=== PATIENT | female | born 1995 | race American Indian/Alaskan Native ===

== ENCOUNTER 2016-04-09 20:28 | Emergency (ER) | payer MEDICAID ==
--- NOTE | 2016-04-10 02:00 | Emergency Department Report ---
HPI - General Chief Complaint: Upper Respiratory Infection Time Seen by Provider: 04/10/16 00:59 - HPI HPI: Patient here reports that she has productive cough that is yellow brown 3 days. She reports having some chills. She reports that a week ago started with nasal congestion and runny nose. Denies any nausea or vomiting. Patient is breast-feeding. Denies any sore throat or earache. Denies any shortness of breath or chest pain. ED Past Medical Hx - Past Medical History Previous Medical History?: No Hx Hypertension: No Hx Congestive Heart Failure: No Hx Diabetes: No Hx Deep Vein Thrombosis: No Hx Renal Disease: No Hx Sickle Cell Disease: No Hx Seizures: No Hx Asthma: No Hx COPD: No Hx HIV: No - Surgical History Past Surgical History?: No - Family History Family history: no significant - Social History Smoking Status: Current Every Day Smoker Substance Use Type: Alcohol - Medications Home Medications: Home Medications Medication Instructions Recorded Confirmed Last Taken Type HYDROcodone/APAP 5-325 [[place] 1 each PO Q6HR PRN #30 tablet 02/22/16 Unknown Rx 5/325] Ibuprofen [Motrin] 800 mg PO Q8HR PRN #60 tablet 02/22/16 Unknown Rx ALBUTEROL Inhaler [ProAir HFA 2 puff IH QID PRN #1 inhalation 04/10/16 Unknown Rx Inhaler] Acetaminophen [Tylenol] 325 mg PO Q8HR PRN #20 tablet 04/10/16 Unknown Rx Amoxicillin/K Clav Tab [Augmentin 1 tab PO Q12HR #20 tab 04/10/16 Unknown Rx 875 mg] guaiFENesin [Mucinex] 600 mg PO Q12H #10 tab.er.12h 04/10/16 Unknown Rx ED Review of Systems ROS: Stated complaint: CHILLS, COLD SYMPTOMS Other details as noted in HPI Comment: All other systems reviewed and negative Constitutional: chills, fever Eyes: denies: eye discharge ENT: congestion. denies: ear pain, throat pain Respiratory: cough. denies: shortness of breath, SOB with exertion, SOB at rest , stridor Cardiovascular: denies: chest pain, palpitations, edema, syncope Gastrointestinal: denies: abdominal pain, nausea, vomiting, diarrhea, constipation Skin: denies: rash Neurological: denies: headache, weakness Physical Exam - Physical Exam Vital Signs: Vital Signs 04/09/16 21:54 Temperature 100.3 F H Pulse Rate 110 H Respiratory 20 Rate Blood Pressure 138/94 O2 Sat by Pulse 100 Oximetry General: This is a 20-year-old female well-nourished well-developed in no acute distress. Physical Exam: Head: Normocephalic, atraumatic Mouth: Moist, no pharyngeal erythema or exudate. No peritonsillar abscesses. Uvula is midline and oral airways patent Ears:LAN TM congested without erythema. Lan EAC without any redness on the drainage. Nose: Negative frontal and maxillary sinus tenderness. Bilateral nasal mucosa congested with erythema and clear drainage. Neck: Full range of motion, no cervical adenopathy. no cspine tendeness. Eyes: Bilateral pupils equal and reactive to light. Bilateral sclera and conjunctiva without injection. Bilateral EOM intact. Lungs: Scattered wheezing auscultated to lung urena. No rhonchi wheezes or rales. Normal work of breathing. Patient with congested cough CV: S1, S2. Mild tachycardia 110. Regular rhythm. Extremity: No clubbing, cyanosis or edema. +2 pedal pulses, no deformity. Skin: Clean, dry and intact. No rashes or lesions. Psych: Normal mood and behavior. ED Course Vital Signs 04/09/16 21:54 Temperature 100.3 F H Pulse Rate 110 H Respiratory 20 Rate Blood Pressure 138/94 O2 Sat by Pulse 100 Oximetry Vital Signs 04/09/16 04/10/16 21:54 01:58 Temperature 100.3 F H Pulse Rate 110 H 82 Respiratory 20 18 Rate Blood Pressure 138/94 Blood Pressure 112/71 [Right] O2 Sat by Pulse 100 100 Oximetry - Reevaluation(s) Reevaluation #1: 04/10/16 02:32 Patient given Xopenex 1.25 mg nebulizer and Tylenol 650 mg in the emergency room. Patient vital signs better upon reassessment. Reevaluation #2: 04/10/16 02:44 Upon reevaluation, lungs souns clear ED Medical Decision Making - Medical Decision Making ED course: Patient here reports nasal congestion, coughing, fever and chills. She is found to have sinusitis and bronchitis. Patient given Xopenex 1.25 mg emergency room nebulizer. She was also given Tylenol 650 mg by mouth. She is currently breast-feeding and will be discharged home on amoxicillin, Mucinex and albuterol. I discussed the patient that she will need to follow up with her primary care physician and if she doesn't have one she can follow-up with outside [facility] Center. Critical care attestation.: If time is entered above; I have spent that time in minutes in the direct care of this critically ill patient, excluding procedure time. ED Disposition Clinical Impression: Cough Acute sinusitis Qualifiers: Sinusitis location: unspecified location Recurrence: not specified as recurrent Qualified Code(s): J01.90 - Acute sinusitis, unspecified Acute bronchitis Qualifiers: Bronchitis organism: unspecified organism Qualified Code(s): J20.9 - Acute bronchitis, unspecified Disposition: DISCHARGED TO HOME OR SELFCARE Is pt being admited?: No Does the pt Need Aspirin: No Condition: Stable Instructions: Acute Bronchitis (ED), Sinusitis (ED), Acute Cough (ED) Additional Instructions: Please increase her fluid intake Please take antibiotic as prescribed Please/sinuses out with saline nasal spray These follow-up with your primary care physician in 2 days. Prescriptions: Acetaminophen [Tylenol] 325 mg PO Q8HR PRN #20 tablet PRN Reason: Fever Amoxicillin/K Clav Tab [Augmentin 875 mg] 1 tab PO Q12HR #20 tab guaiFENesin [Mucinex] 600 mg PO Q12H #10 tab.er.12h ALBUTEROL Inhaler [ProAir HFA Inhaler] 2 puff IH QID PRN #1 inhalation PRN Reason: Cough and wheezing Referrals: PRIMARY CAREMD [Primary Care Provider] - 04/12/16 Forms: Work/School Release Form(ED)
[2016-04-10] MEDS ORDERED: TYLENOL PO ONE (02:02)
[2016-04-10] MEDS ORDERED: XOPENEX IH ONE (02:03)
[2016-04-10 02:31] VITALS: BP 112/71
== END 2016-04-10 02:50 | disposition home or self-care (01) ==
LOC: ED 20:28
DX: J01.90 Acute sinusitis, unspecified (principal); J20.9 Acute bronchitis, unspecified; F17.200 Nicotine dependence, unspecified, uncomplicated
CPT/HCPCS: 94640; 99282

== ENCOUNTER 2016-07-03 23:44 | Emergency (ER) | payer BC, MEDICAID ==
--- NOTE | 2016-07-04 03:37 | Emergency Department Report ---
- General Chief Complaint: Upper Respiratory Infection Stated Complaint: CHEST PAIN/FLU SX Time Seen by Provider: 07/04/16 03:25 Source: patient Mode of arrival: Ambulatory Limitations: No Limitations - History of Present Illness Initial Comments: This is a 20-year-old female that presents with cough, sore throat, headache, ringing in her right ear and chest pain while coughing for the past 2 days. Patient has been in close contact with her child which is diagnosed with common cold. Patient denies any shortness of breath, fever, chills, nausea or vomiting. Patient denies thunderclap headache. Patient stated the headache is gradual onset due to her cold. Patient denies abdominal pain. Denies urinary urgency or frequency. Patient denies any recent travels. MD Complaint: sore throat -: Gradual, days(s) (2) Severity: moderate Severity scale (0 -10): 8 Quality: aching Consistency: constant Context: sick contacts (child) Associated Symptoms: sore throat, cough, chest pain (with only cough), ear pain (right). denies: fever, chills, myalgias, diaphoresis, headache, rhinorrhea, nasal congestion, stiff neck, shortness of breath, abdominal pain, nausea, vomiting, diarrhea, dysuria, rash, confusion, right sweats, weight loss, epistaxis, hoarseness Treatments Prior to Arrival: none - Related Data Previous Rx's Medication Instructions Recorded Last Taken Type HYDROcodone/APAP 5-325 [[place] 1 each PO Q6HR PRN #30 tablet 02/22/16 Unknown Rx 5/325] Ibuprofen [Motrin] 800 mg PO Q8HR PRN #60 tablet 02/22/16 Unknown Rx ALBUTEROL Inhaler [ProAir HFA 2 puff IH QID PRN #1 inhalation 04/10/16 Unknown Rx Inhaler] Acetaminophen [Tylenol] 325 mg PO Q8HR PRN #20 tablet 04/10/16 Unknown Rx Amoxicillin/K Clav Tab [Augmentin 1 tab PO Q12HR #20 tab 04/10/16 Unknown Rx 875 mg] guaiFENesin [Mucinex] 600 mg PO Q12H #10 tab.er.12h 04/10/16 Unknown Rx Azithromycin [Zithromax Z-ROGER] 250 mg PO DAILY #1 tablet 07/04/16 Unknown Rx Ibuprofen [Motrin 600 MG tab] 600 mg PO Q8H PRN 5 Days 07/04/16 Unknown Rx Allergies Allergy/AdvReac Type Severity Reaction Status Date / Time No Known Allergies Allergy Unverified 12/20/15 21:49 ED Review of Systems ROS: Stated complaint: CHEST PAIN/FLU SX Other details as noted in HPI Constitutional: denies: chills, fever Eyes: denies: eye pain, eye discharge, vision change ENT: ear pain, throat pain. denies: dental pain, hearing loss, epistaxis, congestion Respiratory: denies: cough, shortness of breath, SOB with exertion, SOB at rest , stridor, wheezing Cardiovascular: denies: chest pain, palpitations Endocrine: no symptoms reported Gastrointestinal: denies: abdominal pain, nausea, diarrhea Genitourinary: denies: urgency, dysuria, discharge Musculoskeletal: denies: back pain, joint swelling, arthralgia Skin: denies: rash, lesions Neurological: denies: headache, weakness, paresthesias Psychiatric: denies: anxiety, depression Hematological/Lymphatic: denies: easy bleeding, easy bruising ED Past Medical Hx - Past Medical History Previous Medical History?: No Hx Hypertension: No Hx Congestive Heart Failure: No Hx Diabetes: No Hx Deep Vein Thrombosis: No Hx Renal Disease: No Hx Sickle Cell Disease: No Hx Seizures: No Hx Asthma: No Hx COPD: No Hx HIV: No - Surgical History Past Surgical History?: No - Social History Smoking Status: Current Every Day Smoker Substance Use Type: None - Medications Home Medications: Home Medications Medication Instructions Recorded Confirmed Last Taken Type HYDROcodone/APAP 5-325 [[place] 1 each PO Q6HR PRN #30 tablet 02/22/16 Unknown Rx 5/325] Ibuprofen [Motrin] 800 mg PO Q8HR PRN #60 tablet 02/22/16 Unknown Rx ALBUTEROL Inhaler [ProAir HFA 2 puff IH QID PRN #1 inhalation 04/10/16 Unknown Rx Inhaler] Acetaminophen [Tylenol] 325 mg PO Q8HR PRN #20 tablet 04/10/16 Unknown Rx Amoxicillin/K Clav Tab [Augmentin 1 tab PO Q12HR #20 tab 04/10/16 Unknown Rx 875 mg] guaiFENesin [Mucinex] 600 mg PO Q12H #10 tab.er.12h 04/10/16 Unknown Rx Azithromycin [Zithromax Z-ROGER] 250 mg PO DAILY #1 tablet 07/04/16 Unknown Rx Ibuprofen [Motrin 600 MG tab] 600 mg PO Q8H PRN 5 Days 07/04/16 Unknown Rx ED Physical Exam - General Limitations: No Limitations General appearance: alert, in no apparent distress - Head Head exam: Present: atraumatic, normocephalic - Eye Eye exam: Present: normal appearance, PERRL, EOMI Pupils: Present: normal accommodation - ENT ENT exam: Present: normal exam, normal orophraynx, mucous membranes moist, TM's normal bilaterally - Expanded ENT Exam Expanded Mouth exam: Present: normal external inspection, tongue normal. Absent: drooling, trismus, muffled voice, tongue elevation, laceration Teeth exam: Present: normal inspection Throat exam: Positive: tonsillar erythema. Negative: tonsillomegaly, tonsillar exudate, R peritonsillar mass, L peritonsillar mass - Neck Neck exam: Present: normal inspection, full ROM. Absent: tenderness, lymphadenopathy - Respiratory Respiratory exam: Present: normal lung sounds bilaterally. Absent: respiratory distress, wheezes, rales, rhonchi, stridor, chest wall tenderness, accessory muscle use, decreased breath sounds, prolonged expiratory - Cardiovascular Cardiovascular Exam: Present: regular rate, normal rhythm. Absent: systolic murmur, diastolic murmur, rubs, gallop - GI/Abdominal GI/Abdominal exam: Present: soft, normal bowel sounds. Absent: distended, tenderness, guarding, rebound, rigid - Extremities Exam Extremities exam: Present: normal inspection, full ROM, normal capillary refill. Absent: tenderness, pedal edema, joint swelling, calf tenderness - Back Exam Back exam: Present: normal inspection, full ROM. Absent: tenderness, CVA tenderness (R), CVA tenderness (L) - Neurological Exam Neurological exam: Present: alert, oriented X3, CN II-XII intact, normal gait - Psychiatric Psychiatric exam: Present: normal affect, normal mood - Skin Skin exam: Present: warm, dry, intact, normal color. Absent: rash ED Course Vital Signs 07/04/16 07/04/16 00:38 04:06 Temperature 98.2 F 98.3 F Pulse Rate 97 H 74 Respiratory 18 20 Rate Blood Pressure 122/83 Blood Pressure 122/80 [Left] O2 Sat by Pulse 100 99 Oximetry Vital Signs 07/04/16 07/04/16 00:38 04:06 Temperature 98.2 F 98.3 F Pulse Rate 97 H 74 Respiratory 18 20 Rate Blood Pressure 122/83 Blood Pressure 122/80 [Left] O2 Sat by Pulse 100 99 Oximetry ED Medical Decision Making - Medical Decision Making ED course: This is a 20-year-old female that presents with upper respiratory infection 1- patient received ibuprofen 600 mg by mouth in the ED 2- chest x-ray obtained: normal 3- at the time of discharge the patient does not seem toxic or ill in appearance. 4- patient receives Z-Roger and was instructed to finish full course of antibiotics. 5- at the time of discharge the patient agrees to discharge planning treatment. No further questions noted by the patient. 6- I also instructed the patient to wear a mask when in close contact with her child or other family members. 7- I also instructed the patient to increase fluids and rest. Critical care attestation.: If time is entered above; I have spent that time in minutes in the direct care of this critically ill patient, excluding procedure time. ED Disposition Clinical Impression: Upper respiratory infection Qualifiers: URI type: unspecified URI Qualified Code(s): J06.9 - Acute upper respiratory infection, unspecified Disposition: DISCHARGED TO HOME OR SELFCARE Is pt being admited?: No Does the pt Need Aspirin: No Condition: Stable Instructions: Azithromycin (By mouth), Upper Respiratory Infection (ED) Additional Instructions: Follow-up with the primary care doctor in 3-5 days. Take full course of antibiotics as prescribed. Prescriptions: Azithromycin [Zithromax Z-ROGER] 250 mg PO DAILY #1 tablet Ibuprofen [Motrin 600 MG tab] 600 mg PO Q8H PRN 5 Days PRN Reason: Pain Referrals: PRIMARY CARE,MD [Primary Care Provider] - 3-5 Days Forms: Work/School Release Form(ED)
[2016-07-04] MEDS ORDERED: MOTRIN PO ONE (03:44)
[2016-07-04 04:08] VITALS: BP 122/80
--- NOTE | 2016-07-04 06:13 | XRay Report ---
FINAL REPORT PROCEDURE: XR CHEST ROUTINE 2V TECHNIQUE: PA and lateral chest radiographs were obtained. CPT 84660 HISTORY: CHEST PAIN COUGH COMPARISON: No prior studies are available for comparison. FINDINGS: Heart: Normal. Mediastinum/Vessels: Normal. Lungs/Pleural space: Normal. Bony thorax: No acute osseous abnormality. Other: IMPRESSION: Normal examination.
== END 2016-07-04 06:48 | disposition home or self-care (01) ==
LOC: ED 23:44
DX: J06.9 Acute upper respiratory infection, unspecified (principal); F17.200 Nicotine dependence, unspecified, uncomplicated
CPT/HCPCS: 71020; 81025; 99284

== ENCOUNTER 2017-02-08 22:02 | Emergency (ER) | payer BC ==
[2017-02-08 22:56] LABS: Basophils % (Auto) 0.5 % (0.0-1.8); Eosinophils % (Auto) 0.7 % (0.0-4.3); Hematocrit 38.7 % (30.3-42.9); Hemoglobin 12.7 gm/dl (10.1-14.3); Mean Corpuscular HGB Conc 33 % (30-34); Mean Corpuscular Hemoglobin 27 pg (28-32); Mean Corpuscular Volume 81 fl (79-97); Platelet Count 278 K/mm3 (140-440); Red Blood Count 4.76 M/mm3 (3.65-5.03); Red Cell Distribution Width 16.5 % (13.2-15.2)
[2017-02-08 23:04] LABS: Anion Gap 18 mmol/L; BUN/Creatinine Ratio 15; Blood Urea Nitrogen 12 mg/dL (7-17); Calcium 9.2 mg/dL (8.4-10.2); Carbon Dioxide 23 mmol/L (22-30); Chloride 102.2 mmol/L (98-107); Glucose 48 mg/dL (65-100); Sodium 139 mmol/L (137-145)
[2017-02-09 02:19] VITALS: BP 122/71
[2017-02-09] MEDS ORDERED: TORADOL IM ONE (02:35)
--- NOTE | 2017-02-09 02:41 | Emergency Department Report ---
ED Chest Pain HPI - General Chief Complaint: Chest Pain Stated Complaint: CHEST PAIN Time Seen by Provider: 02/09/17 02:30 Source: patient Mode of arrival: Ambulatory Limitations: No Limitations - History of Present Illness Initial Comments: Patient is 21 years old female no significant past medical history presented to the ER with a chief complaint of left-sided chest pain sharp in nature and she take a deep breath, going on for the last 4 days. Patient denied any fever cough or shortness of breath. Patient denied any other symptoms. MD Complaint: chest pain Onset: during rest Severity scale (0 -10): 9 Quality: sharp Consistency: intermittent Worsens With: inspiration - Related Data Previous Rx's Medication Instructions Recorded Last Taken Type HYDROcodone/APAP 5-325 [[place] 1 each PO Q6HR PRN #30 tablet 02/22/16 Unknown Rx 5/325] Ibuprofen [Motrin] 800 mg PO Q8HR PRN #60 tablet 02/22/16 Unknown Rx ALBUTEROL Inhaler [ProAir HFA 2 puff IH QID PRN #1 inhalation 04/10/16 Unknown Rx Inhaler] Acetaminophen [Tylenol] 325 mg PO Q8HR PRN #20 tablet 04/10/16 Unknown Rx Amoxicillin/K Clav Tab [Augmentin 1 tab PO Q12HR #20 tab 04/10/16 Unknown Rx 875 mg] guaiFENesin [Mucinex] 600 mg PO Q12H #10 tab.er.12h 04/10/16 Unknown Rx Azithromycin [Zithromax Z-ROGER] 250 mg PO DAILY #1 tablet 07/04/16 Unknown Rx Ibuprofen [Motrin 600 MG tab] 600 mg PO Q8H PRN 5 Days tablet 07/04/16 Unknown Rx Allergies Allergy/AdvReac Type Severity Reaction Status Date / Time No Known Allergies Allergy Unverified 12/20/15 21:49 Heart Score - HEART Score History: Slightly suspicious EKG: Normal Age: < 45 Risk factors: No known risk factors Troponin: < normal limit HEART Score: 0 - Critical Actions Critical Actions: 0-3 pts:0.9-1.7%risk of adverse cardiac event.Candidate for discharge ED Review of Systems ROS: Stated complaint: CHEST PAIN Other details as noted in HPI Comment: All other systems reviewed and negative Constitutional: denies: chills, fever Respiratory: denies: cough, orthopnea, shortness of breath, SOB with exertion Cardiovascular: chest pain. denies: palpitations Gastrointestinal: denies: abdominal pain, nausea, vomiting, diarrhea, constipation Neurological: denies: headache, weakness, numbness ED Past Medical Hx - Past Medical History Previous Medical History?: No Hx Hypertension: No Hx Congestive Heart Failure: No Hx Diabetes: No Hx Deep Vein Thrombosis: No Hx Renal Disease: No Hx Sickle Cell Disease: No Hx Seizures: No Hx Asthma: No Hx COPD: No Hx HIV: No - Surgical History Past Surgical History?: No - Social History Smoking Status: Current Every Day Smoker Substance Use Type: None - Medications Home Medications: Home Medications Medication Instructions Recorded Confirmed Last Taken Type HYDROcodone/APAP 5-325 [[place] 1 each PO Q6HR PRN #30 tablet 02/22/16 Unknown Rx 5/325] Ibuprofen [Motrin] 800 mg PO Q8HR PRN #60 tablet 02/22/16 Unknown Rx ALBUTEROL Inhaler [ProAir HFA 2 puff IH QID PRN #1 inhalation 04/10/16 Unknown Rx Inhaler] Acetaminophen [Tylenol] 325 mg PO Q8HR PRN #20 tablet 04/10/16 Unknown Rx Amoxicillin/K Clav Tab [Augmentin 1 tab PO Q12HR #20 tab 04/10/16 Unknown Rx 875 mg] guaiFENesin [Mucinex] 600 mg PO Q12H #10 tab.er.12h 04/10/16 Unknown Rx Azithromycin [Zithromax Z-ROGER] 250 mg PO DAILY #1 tablet 07/04/16 Unknown Rx Ibuprofen [Motrin 600 MG tab] 600 mg PO Q8H PRN 5 Days tablet 07/04/16 Unknown Rx ED Physical Exam - General Limitations: No Limitations General appearance: alert, in no apparent distress - Head Head exam: Present: atraumatic, normocephalic, normal inspection - Eye Eye exam: Present: normal appearance - ENT ENT exam: Present: normal exam, mucous membranes moist - Respiratory Respiratory exam: Present: normal lung sounds bilaterally, chest wall tenderness. Absent: wheezes, rales, rhonchi, stridor - Cardiovascular Cardiovascular Exam: Present: regular rate, normal rhythm, normal heart sounds. Absent: bradycardia, tachycardia - GI/Abdominal GI/Abdominal exam: Present: soft, normal bowel sounds. Absent: distended, tenderness, guarding, rebound, rigid, organomegaly, mass, bruit, pulsatile mass , hernia - Extremities Exam Extremities exam: Present: normal inspection, normal capillary refill. Absent: tenderness, pedal edema - Neurological Exam Neurological exam: Present: alert, oriented X3, CN II-XII intact, normal gait - Skin Skin exam: Present: warm, intact, normal color. Absent: cyanosis ED Course Vital Signs 02/08/17 12 22:15 02:18 Temperature 98.5 F 98.7 F Pulse Rate 74 61 Respiratory 17 19 Rate Blood Pressure 117/84 Blood Pressure 122/71 [Left] O2 Sat by Pulse 100 100 Oximetry ED Medical Decision Making - Lab Data Result diagrams: 02/08/17 22:31 02/08/17 22:31 - EKG Data -: EKG Interpreted by Me EKG shows normal: sinus rhythm Rate: normal - EKG Data Interpretation: no acute changes - Medical Decision Making Patient's symptoms is going well with costochondritis and pleurisy. Patient has 2 sets of troponin that came back negative Critical care attestation.: If time is entered above; I have spent that time in minutes in the direct care of this critically ill patient, excluding procedure time. ED Disposition Clinical Impression: Chest pain, Costochondritis, acute Disposition: DC-01 TO HOME OR SELFCARE Is pt being admited?: No Condition: Stable Instructions: Chest Pain (ED), Costochondritis (ED), Pleurisy (ED) Referrals: PRIMARY CARE, [Primary Care Provider] - 3-5 Days
== END 2017-02-09 03:00 | disposition home or self-care (01) ==
LOC: ED 22:02
DX: M94.0 Chondrocostal junction syndrome [Tietze] (principal); F17.200 Nicotine dependence, unspecified, uncomplicated
CPT/HCPCS: 36415; 80048; 84484; 84703; 85025; 93005; 93010; 96372; 99284; J1885